=== PATIENT | female | born 1980 | race Caucasian/White ===

== ENCOUNTER 2016-08-31 18:26 | Emergency (ER) | payer BC ==
[2016-08-31 18:37] VITALS: BP 135/80; PULSE 105; TEMP 98.5; BMI 37.9
--- NOTE | 2016-08-31 21:09 | PDOC ---
History of Present Illness - General Chief Complaint: Foreign Body (FB) Stated Complaint: FOREIGN OBJECT STUCK IN THROAT Time Seen by Provider: 08/31/16 19:58 History Source: Patient Exam Limitations: No Limitations - History of Present Illness Initial Comments: 08/31/16 21:06 Patient is well-appearing 36-year-old female who presents to the ER after swallowing a stainless steel nose ring shortly prior to arrival. Patient reports a foreign body sensation in the throat and a single episode of nonbloody , nonbilious vomiting shortly after the event. Patient denies abdominal pain/ difficulty breathing/difficulty tolerating own secretions. REVIEW OF SYSTEMS CONSTITUTIONAL: No fever, no chills, no fatigue EYES: No visual changes ENT: No ear pain, +sore throat; + foreign body sensation in the throat; CARDIOVASCULAR: No chest pain, no palpitations RESPIRATORY: No cough, no SOB GI: No abdominal pain, no nausea, + vomiting, no constipation, no diarrhea GENITOURINARY: No dysuria, no frequency, no hematuria MUSKULOSKELETAL: No backpain, no joint pain, no myalgias SKIN: No rash NEURO: No headache EXAMINATION CONSTITUTIONAL: Well-appearing; well-nourished; in no apparent distress HEAD: Normocephalic; atraumatic EYES: PERRL; EOM intact ENMT: External appears normal; normal oropharynx NECK: Supple; non-tender; no stridor; no foreign body; CARD: Normal S1, S2; no murmurs, rubs, or gallops RESP: Normal chest excursion with respiration; breath sounds clear and equal bilaterally; no wheezes, rhonchi, or rales ABD: Soft, non-distended; non-tender; no palpable organomegaly, no palpable hernias EXT: Normal ROM in all four extremities; non-tender to palpation; distal pulses intact SKIN: Warm, dry, no rash NEURO: No focal neurological deficiencies. Past History - Past Medical History Allergies/Adverse Reactions: Allergies Allergy/AdvReac Type Severity Reaction Status Date / Time Penicillins Allergy Severe Verified 08/31/16 18:37 Home Medications: Ambulatory Orders Synthroid 03/29/11 Ibuprofen [Motrin -] 600 mg PO Q4H PRN #1 tablet 04/02/11 Levothyroxine [Synthroid -] 150 mcg PO DAILY@0700 #1 tablet 04/02/11 Asthma: No Cancer: No Cardiac Disorders: No Diabetes: No HTN: No Seizures: No Thyroid Disease: Yes (HYPOTHYROIDISM SINCE 2001) - Psycho/Social/Smoking Cessation Hx Anxiety: No Suicidal Ideation: No Smoking History: Never smoked Have you smoked in the past 12 months: No Hx Alcohol Use: Yes (SOCIAL) Drug/Substance Use Hx: No Substance Use Type: None Hx Substance Use Treatment: No *Physical Exam - Vital Signs Last Vital Signs Temp Pulse Resp BP Pulse Ox 98.5 F 105 H 20 135/80 98 08/31/16 18:33 08/31/16 18:33 08/31/16 18:33 08/31/16 18:33 08/31/16 18:33 ED Treatment Course - RADIOLOGY Radiology Studies Ordered: Category Date Time Status NECK SOFT TISSUE [RAD] Stat Radiology 08/31/16 20:02 Taken Medical Decision Making - Medical Decision Making 08/31/16 21:08 Patient's 36-year-old female who presents after ingestion of a stainless steel nose ring. Soft tissue neck reveals no evidence of foreign bodies. In the ER, patient is complaining of mild foreign body sensation only, without evidence of stridor or respiratory compromise. I do not suspect acute respiratory issues at this time. If patient had swallowed the foreign body, it is likely pass. Will discharge with follow-up. *DC/Admit/Observation/Transfer Diagnosis at time of Disposition: Foreign body in pharynx Qualifiers: Encounter type: initial encounter Qualified Code(s): T17.208A - Unspecified foreign body in pharynx causing other injury, initial encounter - Discharge Dispostion Disposition: HOME Condition at time of disposition: Stable - Referrals Referrals: Saroj Almanzar MD [Staff Physician] - - Patient Instructions Additional Instructions: Your x-ray shows no evidence of foreign body in the throat. You've likely swallowed the the nose ring and it will likely to pass. Follow-up with ENT as needed. Return immediately for severe abdominal pain, rectal bleeding.
== END 2016-08-31 22:11 | disposition home or self-care (01) ==
LOC: JER 18:26
DX: T17.208A Unspecified foreign body in pharynx causing other injury, initial encounter (principal); E03.9 Hypothyroidism, unspecified; X58.XXXA Exposure to other specified factors, initial encounter; Y93.89 Activity, other specified; Y92.9 Unspecified place or not applicable
CPT/HCPCS: 70360-TC; 99282-25